=== PATIENT | male | born 1960 | race Caucasian/White ===

== ENCOUNTER → 2023-11-08 06:32 | Day surgery (SDC) | payer OTHER, SELFPAY | LOC: GI 06:32 | PROVIDERS: ATTENDING PHYSICIAN Internal Medicine | DX: Z12.11 Encounter for screening for malignant neoplasm of colon (principal); K62.89 Other specified diseases of anus and rectum; K64.8 Other hemorrhoids; D12.3 Benign neoplasm of transverse colon; K62.1 Rectal polyp | CPT/HCPCS: 45385; 45380; 88305 ==

== ENCOUNTER → 2023-12-06 15:13 | Outpatient (REF) | payer OTHER, SELFPAY | LOC: MRI 3T 15:13 | PROVIDERS: ATTENDING PHYSICIAN Surgery; FAMILY PHYSICIAN Physician Assistant | DX: R97.20 Elevated prostate specific antigen [PSA] (principal) | CPT/HCPCS: 72197; A9575 ==

== ENCOUNTER 2024-05-03 06:06 | Day surgery (SDC) | payer OTHER, SELFPAY ==
[2024-04-27 10:41] LABS: Hematocrit 40.8 % (39.0-52.0); Hemoglobin 14.2 g/dL (13.0-18.0); Mean Corp Hgb Conc. 34.8 g/dL (33.0-37.0); Mean Corpuscular Hgb 32.9 pg (27.0-31.0); Mean Corpuscular Volume 94.7 fL (80.0-94.0); Mean Platelet Volume 10.5 fL (7.4-10.4); Platelet Count 194 10^3/uL (130-400); Red Blood Cell Count 4.31 10^6/uL (4.70-6.10); Red Cell Dist. Width 12.9 % (11.5-14.5); White Blood Cell Count 3.8 10^3/uL (4.8-10.8)
[2024-04-27 11:06] LABS: Blood Urea Nitrogen 18 mg/dl (9-20); Calcium 9.1 mg/dl (8.4-10.2); Carbon Dioxide 34 mmol/L (22-30); Chloride 103 mmol/L (98-107); Glucose 81 mg/dl (70-99); Potassium 4.2 mmol/L (3.5-5.1); Sodium 140 mmol/L (135-145); eGFR > 60.00
[2024-04-27 12:50] VITALS: BMI 25.0
[2024-05-03] VITALS (23 sets, daily range): BP systolic 114–137; BP diastolic 69–88; BMI 25.0
[2024-05-03] MEDS: NEOMYCIN ENEMA 1 BOTTLE RECTAL (06:35)
[2024-05-03] MEDS: NORMOSOL-R/PLASMALYTE-A 1000 IV ×2 (06:39→15:37)
[2024-05-03] MEDS: TORADOL 15 MG IV ×2 (16:07→22:12)
[2024-05-03] MEDS: POLYSPORIN/DOUBLE ANTIBIOTIC TOPICAL (16:14)
[2024-05-03] MEDS: COLACE PO ×3 (17:03→17:39)
[2024-05-03] MEDS: TYLENOL 650 MG PO (20:23)
[2024-05-03] MEDS: POLYSPORIN/DOUBLE ANTIBIOTIC 1 APPLIC TOPICAL (22:10)
[2024-05-04 03:05] VITALS: BP 145/90
[2024-05-04] MEDS: TORADOL 15 MG IV ×3 (03:21→15:11)
[2024-05-04 06:00] VITALS: BMI 25.0
[2024-05-04 06:34] LABS: Hematocrit 34.2 % (39.0-52.0); Mean Corp Hgb Conc. 35.1 g/dL (33.0-37.0); Mean Corpuscular Hgb 32.6 pg (27.0-31.0); Mean Corpuscular Volume 92.9 fL (80.0-94.0); Mean Platelet Volume 10.3 fL (7.4-10.4); Platelet Count 157 10^3/uL (130-400); Red Blood Cell Count 3.68 10^6/uL (4.70-6.10); Red Cell Dist. Width 12.6 % (11.5-14.5); White Blood Cell Count 6.6 10^3/uL (4.8-10.8)
[2024-05-04 06:41] VITALS: BMI 25.7
[2024-05-04 06:45] LABS: Blood Urea Nitrogen 16 mg/dl (9-20); Calcium 8.4 mg/dl (8.4-10.2); Carbon Dioxide 27 mmol/L (22-30); Chloride 105 mmol/L (98-107); Estimated Creatinine Clearance 93 ml/min; Glucose 99 mg/dl (70-99); Potassium 4.2 mmol/L (3.5-5.1); Sodium 136 mmol/L (135-145); eGFR > 60.00
[2024-05-04 07:27] VITALS: BP 112/72
[2024-05-04] MEDS: COLACE PO ×2 (08:31→11:19)
[2024-05-04] MEDS: POLYSPORIN/DOUBLE ANTIBIOTIC 1 APPLIC TOPICAL (08:39)
--- NOTE | 2024-05-04 08:54 | CM ---
Reviewed the chart notes and spoke with the patient at the bedside. Patient resides with his spouse in a two story home with three steps to enter. The patient reports no DME/VN/SNF in the past. The patient confirmed his pharmacy of choice is the
[facility] Paloma Wiggins and PCP Michelle Chaudhry. CM consult for VN received. Reviewed with the patient VN agencies in area. Patient selected VN. Referral sent via Care Port. CM continues to be available to patient/family and is monitoring
medical plan for needs at discharge.
Plan: Discharge to home when medically stable with VN services for [facility] management.
[2024-05-04] MEDS: NORMOSOL-R/PLASMALYTE-A IV (09:56)
--- NOTE | 2024-05-04 09:57 | VNURNOTE ---
Home Health Liaison met with patient and spouse at bedside to discuss [facility] nurse/therapy, visits, schedule and homebound status. Patient is agreeable and understands that visits at home will be 2-3 x per week to assess and teach medical management,
king care.
[facility] brochure provided with contact information. Patient is aware that [facility] will contact them for start of care in 1-2 days after discharge from .
[facility] referral in Care Port.
--- NOTE | 2024-05-04 10:43 | W.PN.URO.CBU ---
Today's Communication / Plan
-
dc
Assessment / Plan
-
stable
Diagnosis
-
Date of Service: May 04, 2024
-
Patient Diagnosis: prostate ca s/p ralrp
Post Op Day: 1
Subjective
-
expected abd-pelvic ache
Objective
-
Vital Signs
Temp Pulse Resp BP Pulse Ox
98.0 F 66 16 112/72 96
05/04/24 07:27 05/04/24 07:27 05/04/24 07:27 05/04/24 07:27 05/04/24 07:27
Intake and Output
05/03/24 05/04/24 05/05/24
06:59 06:59 06:59
Intake Total 1860 / 1860 960 / 960
Output Total 2925 / 2925
Balance -1065 / -1065 960 / 960
Intake:
Oral fluids 1560 / 1560
IV fluids (Total) 300 / 300 960 / 960
Normosol 300 / 300
Output:
Urine, [place] 2925 / 2925
Laboratory Results
05/04/24 06:04
05/04/24 06:04
Physical Exam
-
General - well developed, well nourished, no acute distress
Abdomen -[address]
Genitalia - [place] draining faint pink urine
Care Review
Data Reviewed
Discussed with: Family ( at bedside)
[2024-05-04] MEDS: COLACE 100 MG PO (15:11)
[2024-05-04 15:29] VITALS: BP 109/73
== END 2024-05-04 16:03 | disposition home or self-care (01) ==
LOC: SDS 06:06
PROVIDERS: ATTENDING PHYSICIAN Specialist; FAMILY PHYSICIAN Physician Assistant
DX: C61 Malignant neoplasm of prostate (principal)
CPT/HCPCS: 55866; 38571; 88305; 88307; 88309; 36415; 80048; 85027; 86850; 86900; 86901; 93005